=== PATIENT | male | born 1955 | race Caucasian/White ===

== ENCOUNTER 2021-12-23 11:44 | Observation (INO) ==
[2021-12-23] MEDS ORDERED: Promethazine 6.25 MG in Water for inj. (sterile) 20 ML IVPB PRN (12:02)
[2021-12-23] MEDS ORDERED: *HR* HYDROmorphone 2 MG TABLET PO PRN (12:02)
[2021-12-23] MEDS ORDERED: Ondansetron 4 MG/2 ML VIAL IVP PRN ×2 (12:02→16:12)
[2021-12-23] MEDS ORDERED: Famotidine 20 MG/2 ML VIAL IVP ONE (12:02)
[2021-12-23] MEDS ORDERED: Acetaminophen IV 1,000 MG/100 ML BAG IVPB ONE (12:02)
[2021-12-23] MEDS ORDERED: *HR* Labetalol 20 MG/4 ML SYRINGE IVP PRN (12:02)
[2021-12-23] MEDS ORDERED: *HR* HYDROmorphone (PF) 1 MG/ML SYRINGE IVP PRN (12:02)
[2021-12-23] MEDS ORDERED: *HR* OxyCODONE Immed Rel 5 MG TABLET PO PRN ×2 (12:02→16:12)
[2021-12-23] MEDS ORDERED: Pregabalin 75 MG CAPSULE PO ONE (12:02)
[2021-12-23] MEDS ORDERED: levoFLOXacin 500 MG/100 ML 500 MG/100 ML BAG IVPB ONE (12:05)
[2021-12-23] MEDS ORDERED: Ringers Solution, Lactated 1,000 ML IVC SCH (12:15)
[2021-12-23] MEDS ORDERED: Lidocaine -MPF 2% 2 ML VIAL ONE (12:21)
[2021-12-23] MEDS ORDERED: Ondansetron 4 MG/2 ML VIAL ONE (12:21)
[2021-12-23] MEDS ORDERED: *HR* FentaNYL (PF) 100 MCG/2 ML VIAL ONE (12:21)
[2021-12-23] MEDS ORDERED: *HR* Propofol 200 MG/20 ML VIAL IVP ONE (12:22)
[2021-12-23] MEDS ORDERED: *HR* Midazolam HCl 2 MG/2 ML VIAL ONE (12:23)
[2021-12-23] MEDS ORDERED: *HR* HYDROMORPHONE 2 MG/ML VIAL ONE (13:11)
[2021-12-23] MEDS ORDERED: *HR* Labetalol 20 MG/4 ML SYRINGE IVP ONE (14:37)
[2021-12-23] MEDS ORDERED: Naloxone 0.4 MG/ML INJ IVP PRN (16:12)
[2021-12-23] MEDS ORDERED: *HR* HYDROcodone/Acet 5/325 mg TABLET PO PRN (16:12)
[2021-12-23] MEDS: Acetaminophen IV 1,000 MG/100 ML BAG IVPB SCH ×2 (16:29→23:41)
[2021-12-23] MEDS: 0.9 % Sodium Chloride 1,000 ML IVC SCH (18:02)
[2021-12-23] MEDS ORDERED: *HR* Promethazine 25 MG/ML VIAL IM PRN (18:59)
[2021-12-24] MEDS: Acetaminophen IV 1,000 MG/100 ML BAG IVPB SCH ×2 (07:05→13:44)
[2021-12-24] MEDS: amLODIPine 5 MG TABLET PO SCH (08:08)
[2021-12-24] MEDS: 0.9 % Sodium Chloride 1,000 ML IVC SCH ×2 (08:08→22:10)
[2021-12-25] MEDS: Acetaminophen IV 1,000 MG/100 ML BAG IVPB SCH ×2 (00:52→07:37)
[2021-12-25 07:16] VITALS: BP 130/79; PULSE 53; TEMP 98; O2SAT 95
[2021-12-25] MEDS: 0.9 % Sodium Chloride 1,000 ML IVC SCH (07:55)
[2021-12-25] MEDS: amLODIPine 5 MG TABLET PO SCH (08:01)
== END 2021-12-25 09:58 | disposition home or self-care (01) ==
LOC: 3BNU 11:44 → SAMDAY 11:44 → 3BNU 16:08
PROVIDERS: ADMIT Urology; ATTEND Urology
PROC: UROTURP (2021-12-23 13:10)